=== PATIENT | female | born 1975 | race African-American/Black ===

== ENCOUNTER 2019-01-08 21:32 | Emergency (ER) | payer OTHER ==
[~2019-01-08] VITALS: Ht 160 cm; Wt 68.0 kg
[2019-01-08] MEDS ORDERED: AZELASTINE137 MCG/0. NASAL (21:55)
[2019-01-08] MEDS ORDERED: BUTRANS1 EAC1 TD (21:55)
[2019-01-08] MEDS ORDERED: CYMBALTA60 MG PO (21:56)
[2019-01-08] MEDS ORDERED: ZYRTEC10 M5 PO (21:56)
[2019-01-08] MEDS ORDERED: VALIUM5 MG PO (21:56)
[2019-01-08] MEDS ORDERED: EPIPEN0.3 MG/0.1 IM (21:57)
[2019-01-08] MEDS ORDERED: FLONASE 0.05%50 MCG NASAL (21:57)
[2019-01-08] MEDS ORDERED: NEURONTIN 300300 M1 PO (21:58)
[2019-01-08] MEDS ORDERED: LINZESS290 MCG PO (21:58)
[2019-01-08] MEDS ORDERED: FOLIC ACID1 MG PO (21:58)
[2019-01-08] MEDS ORDERED: SINGULAIR 10 MG10 M1 PO (21:59)
[2019-01-08] MEDS ORDERED: METHOTREXATE 22.5 MG PO (21:59)
[2019-01-08] MEDS ORDERED: STELARA45 MG/0.5 SUBQ (22:00)
[2019-01-08] MEDS ORDERED: PROAIR HFA8.5 GM INH (22:00)
[2019-01-08] MEDS ORDERED: TRAZODONE HCL50 MG PO (22:01)
[2019-01-08] MEDS ORDERED: ZANAFLEX4 MG PO (22:01)
[2019-01-08] MEDS ORDERED: TROKENDI XR200 MG PO (22:02)
[2019-01-08 23:22] LABS: HEMATOCRIT 34.5 % (37.0-47.0); MCH 27.2 pg (26.0-34.0); MCV 85.1 fL (80.0-100.0); RBC 4.05 mil/uL (4.20-5.00); RDW 18.1 % (10.5-14.5); WBC 10.4 thou/uL (4.0-11.0)
[2019-01-08 23:26] LABS: ANION GAP 11 mmol/L (7-16); BUN 22 mg/dL (7-18); CALCIUM 8.6 mg/dL (8.5-10.1); CHLORIDE 111 mmol/L (98-107); CO2 22 mmol/L (21-32); CREATININE 1.1 mg/dL (0.6-1.0); GLUCOSE 83 mg/dL (74-106); POTASSIUM 3.7 mmol/L (3.5-5.1); SODIUM 144 mmol/L (136-145)
[2019-01-08 23:35] LABS: TROPONIN-I <0.06 ng/mL (<0.06)
[2019-01-08 23:40] LABS: URINE BILIRUBIN NEGATIVE (Negative); URINE BLOOD 3+ (Negative); URINE CLARITY SL CLOUDY; URINE COLOR YELLOW; URINE GLUCOSE-RANDOM* NEGATIVE (Negative); URINE KETONES NEGATIVE (Negative); URINE LEUKOCYTES-REFLEX TRACE (Negative); URINE NITRITE-REFLEX NEGATIVE (Negative); URINE PROTEIN (DIPSTICK) TRACE (Negative); URINE SPECIFIC GRAVITY 1.025 (1.005-1.035); URINE UROBILINOGEN 0.2 E.U./dl (0.2-1.0)
[2019-01-08 23:49] LABS: SQUAMOUS 0-3 Few /LPF (0-3)
[2019-01-08 23:50] LABS: CASTS None Seen /LPF (None Seen); MUCUS >6 Heavy strn/LPF (None Seen); URINE RBC >20 Many /HPF (0-2); URINE WBC-REFLEX 6-15 Few /HPF (0-5)
[2019-01-08 23:51] LABS: CALCIUM OXALATE 4-10 Moderate /LPF (None Seen)
[2019-01-09] MEDS ORDERED: KEFLEX500 M1 PO (03:48)
[2019-01-09] MEDS ORDERED: DIFLUCAN150 MG PO (03:48)
[2019-01-09 04:05] VITALS: BP 123/76
== END 2019-01-09 04:14 | disposition home or self-care (01) ==
LOC: ER 21:32
PROVIDERS: Emergency Medicine
DX: N39.0 Urinary tract infection, site not specified (principal); G43.909 Migraine, unspecified, not intractable, without status migrainosus; G40.909 Epilepsy, unspecified, not intractable, without status epilepticus; M79.7 Fibromyalgia; G89.4 Chronic pain syndrome; J45.909 Unspecified asthma, uncomplicated; Z88.5 Allergy status to narcotic agent; Z88.6 Allergy status to analgesic agent; Z88.1 Allergy status to other antibiotic agents; Z79.899 Other long term (current) drug therapy

== ENCOUNTER 2020-12-17 06:55 | Observation (INO) | payer OTHER ==
[~2020-12-17] VITALS: Ht 160 cm; Wt 66.6 kg
--- NOTE | ~2020-12-17 | EEG ---
[facility] [place] [address] ELECTROENCEPHALOGRAM Name: ROSE LOZANO Room #: 464-P [facility] IN M.R.#: [id number] Admission: 12/17/20 Attend Phys: Titi Mcgarry Discharge: Date of : 73 Report #: [id number] THIS REPORT FOR: //name// DOC #: [id number] Manpreet Penaloza MD DATE OF SERVICE: 12/17/2020 FINDINGS: This patient is being evaluated for a seizure. EEG was done by placing the electrode by standard 10-20 system of electrode placement. Both referential and sequential montages were used for recording. Background activity in this patient's EEG is about 8-9 Hz. She goes to sleep that is associated with bilateral slowing and vertex sharp waves. Significant amount of artifact is present. Photic stimulation is unremarkable. IMPRESSION: This patient's EEG does not demonstrate any clear-cut epileptiform activity. Thank you very much for this referral. Manpreet Penaloza MD PK/ALL By: [id number] Manpreet Penaloza MD /nt
--- NOTE | ~2020-12-17 | HC ---
[facility] [place] [address] [place] [address] CONSULTATION Name: ROSE LOZANO Joycelyn Room #: 464-P ADM IN M.R.#: [id number] Admission: 12/17/20 Attend Phys: Titi Cobb Discharge: Date of : 73 Report #: [id number] THIS REPORT FOR: cc: FAM - No family physician/PCP FAM - No family physician/PCP Manpreet Penaloza MD ~ DOC #: [id number] Manpreet Penaloza MD DATE OF SERVICE: 12/17/2020 HISTORY OF PRESENT ILLNESS: This is a 45-year-old female patient who was evaluated by me for headache. This patient has a very complicated history. She said she has a longstanding history of migraine, history is somewhat unstructured but looks like migraine started many years ago, probably in her early 20s, but she does not even remember clearly. Since then, she has been seen by multiple neurologists, according to her. Presently, she sees Dr. Hudson in [place] for neurological care. Prior to that, she has seen neurologist and neurosurgeon in [place]. When I asked her why did she see the neurosurgeon, she said it was because of head injury, but he cleared her. She said she has migraine headaches now since Monday. She had severe migraine, but she cannot tell me when was the last one between October and November. She has been to the hospital for the migraine, but does not remember the last time she was in the hospital. 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 She says she does not have a grand mal seizure. She does not remember anything about those episodes. She may have some twitching of the face, but no generalized tonic-clonic activity has been noticed. She should be on a list of medication, she is on multiple medications. She claims none of them is from psychiatric purposes, but lot of them have potential psychiatric use. She is on diazepam p.r.n. She is on venlafaxine, she does not know why. She is on gabapentin. She is on lamotrigine. Lamotrigine, she is on a somewhat lower dose, but looks like 50 mg p.o. b.i.d. the best I can tell. When I asked her whether she has any anxiety and depression, she says no. After persistent inquiry, she modified that and she says well she has seen psychiatrists in the past, but has not done recently. I asked her when was the last time she saw the psychiatrist, she did not tell me that. As far as treatment of the migraine is concerned, she says she takes calcitonin antagonist every month. She has taken Topamax and I am not sure why she stopped that. She says she has a love-hate relationship with Botox shots and she was part of the study. I am not sure what exactly that mean, whether Botox shots help her or not. She also described has a history of fibromyalgia. Her pain is all over the head. It also even involve the neck. She says movement of the eye hurts. I tried to check the reflexes, she says it hurts a lot in the knee because of fibromyalgia. Even when I tap with the hand, she jerks out saying it hurts too much. All of it makes it very difficult to [facility] [address] [place] [address] CONSULTATION Name: ROSE LOZANO Room #: 464-P ADM IN M.R.#: [id number] Admission: 12/17/20 Attend Phys: Titi Cobb Discharge: Date of : 73 Report #: [id number] further evaluate this patient. She says SHE IS ALLERGIC TO TRAMADOL. She had multiple testing including MRIs in the past. Here in the Emergency Room, she had a CT scan of the head as well as CT angio before I saw her. She complains of pain while moving the eyes, does not have any ENT complaint. She does not have any respiratory difficulty or chest pain. She complained of pain all over the body. She denied any dermatological symptoms. She denies any psychiatric symptoms, but she does have a psychiatric history. This was a relevant 14-point review of systems. PAST MEDICAL HISTORY: Positive for migraine, but mostly headache and history is not very clear because it is somewhat difficult to fully elicit a history because I do not get a clear answer to some of my questions. FAMILY HISTORY: Unremarkable. SOCIAL HISTORY: She says she works. ALLERGIES: SHE IS ALLERGIC TO MULTIPLE THINGS. PHYSICAL EXAMINATION: Her examination was very difficult. She will not open her eyes. When she finally opened, I asked her to move her eyes in all direction. She says it hurts. When I tried to ask her to lift her arm, she does it very slowly, but when she is distracted, she is able to move reasonably well. Similar story is with the lower extremities. When I asked her if her toe is up or down, she persistently say it opposite to what it is. When I tried to check her reflexes, she jumps even if I tried to check with my hands. That makes it very difficult to evaluate her. There is no meningeal sign in this patient. Cardiac and respiratory examination is unremarkable. VITAL SIGNS: Blood pressure is 163/93, respirations 16, pulse is 77, temperature is 98.6. LABORATORY DATA: White count 11.2. She had a CT scan of the head and CT angio in the Emergency Room and that was unremarkable. Her sed rate is high, but the finding is not very typical for temporal arteritis, but as I understand, Rheumatology is going to address that question and we will defer to them. IMPRESSION: 1. I discussed with this patient that everything need to be readdressed in her case. The history of migraine as well as a history of partial complex seizures need to be readdressed. I told her that these things are typically done in a tertiary care hospital and I told her to go to a tertiary care hospital after she is dismissed. She also need pain management, but unfortunately no pain management or an displayer comes here. I will get her records from her prior neurologist. [address] [place] [address] CONSULTATION Name: ROSE LOZANO Room #: 464-P [facility] IN .R.#: [id number] Admission: 12/17/20 Attend Phys: Titi Cobb Discharge: Date of : 73 Report #: [id number] 2. We can consider spinal tap, but the chances of infection is not very high. I think the main management is probably going to be symptomatic. I offered her to give her Depakote or steroids, but she says those do not help. I am not sure what can be done in the circumstances, but we will review her old records and will defer the pain management to them and Dr. Field will follow up with you from tomorrow. Thank you very much for this referral. I will suggest considering a psychiatric consult in this patient if patient is agreeable for that. MD CARLO Cardozo/IRISH By: [id number] Manpreet Penaloza MD /nt
[~2020-12-17 06:55] MED LIST: AZELASTINE137 MCG/0. NASAL; BUTRANS1 EAC1 TD; CYMBALTA60 MG PO; DIFLUCAN150 MG PO; EPIPEN0.3 MG/0.1 IM; FLONASE 0.05%50 MCG NASAL; FOLIC ACID1 MG PO; KEFLEX500 M1 PO; LINZESS290 MCG PO; METHOTREXATE 22.5 MG PO; NEURONTIN 300300 M1 PO; PROAIR HFA8.5 GM INH; SINGULAIR 10 MG10 M1 PO; STELARA45 MG/0.5 SUBQ; TRAZODONE HCL50 MG PO; TROKENDI XR200 MG PO; VALIUM5 MG PO; ZANAFLEX4 MG PO; ZYRTEC10 M5 PO
[2020-12-17 07:06] VITALS: BP 119/81
[2020-12-17 07:31] LABS: ABSOLUTE NEUTROPHILS 8.1 thou/uL (1.4-8.2); BASOPHILS 0.5 % (0.0-2.0); EOSINOPHILS 0.1 % (0.0-3.0); HEMATOCRIT 35.3 % (37.0-47.0); LYMPHOCYTES 13.1 % (24.0-44.0); MCH 30.2 pg (26.0-34.0); MCHC 34.1 g/dL (28.0-37.0); MCV 88.6 fL (80.0-100.0); MONOCYTES 13.8 % (1.0-8.0); PLATELET COUNT 320 thou/uL (150-400); POLYS 72.5 % (36.0-66.0); RBC 3.98 mil/uL (4.20-5.00); RDW 16.9 % (10.5-14.5); WBC 11.2 thou/uL (4.0-11.0)
[2020-12-17 07:36] LABS: CALCIUM 8.5 mg/dL (8.5-10.1); CREATININE 1.1 mg/dL (0.6-1.0); POTASSIUM 3.6 mmol/L (3.5-5.1)
[2020-12-17 07:42] LABS: TOTAL BILIRUBIN 0.3 mg/dL (0.2-1.0); TOTAL PROTEIN 7.3 g/dL (6.4-8.2)
[2020-12-17 10:03] LABS: AMP/METHAMP Negative (Negative); BARBITURATES Negative (Negative); BENZODIAZEPINES Negative (Negative); COCAINE Negative (Negative); METHADONE Negative (Negative); OPIATES Negative (Negative); PCP Negative (Negative)
[2020-12-17 11:58] VITALS: BP 124/85
[2020-12-17 12:42] VITALS: BP 136/93
[2020-12-17 16:18] VITALS: BP 133/90
[2020-12-17] MEDS ORDERED: LAMOTRIGINE25 MG PO (17:17)
[2020-12-17] MEDS ORDERED: NALTREXONE HCL5 GM PO (17:18)
[2020-12-17] MEDS ORDERED: OLOPATADINE HC2.5 ML OPHTHALMIC (17:20)
[2020-12-17 20:16] VITALS: BP 130/84
[2020-12-18 07:48] VITALS: BP 137/90
[2020-12-18 15:38] VITALS: BP 136/88
[2020-12-18] MEDS ORDERED: PREDNISONE 20 M20 MG PO (16:30)
[2020-12-18 20:13] VITALS: BP 133/86
[2020-12-19 07:21] VITALS: BP 150/102
[2020-12-19 09:50] VITALS: BP 132/84
[2020-12-19 14:50] VITALS: BP 132/84
== END 2020-12-19 15:46 | disposition home or self-care (01) ==
LOC: ER 06:55 → 4W 12:35
PROVIDERS: Emergency Medicine; ADMIT Hospitalist; ATTEND Hospitalist
DX: G43.919 Migraine, unspecified, intractable, without status migrainosus (principal); G40.209 Localization-related (focal) (partial) symptomatic epilepsy and epileptic syndromes with complex partial seizures, not intractable, without status epilepticus; Z20.822 Contact with and (suspected) exposure to COVID-19; M79.7 Fibromyalgia; G89.29 Other chronic pain; J45.909 Unspecified asthma, uncomplicated; Z88.5 Allergy status to narcotic agent; Z88.6 Allergy status to analgesic agent; Z91.048 Other nonmedicinal substance allergy status; Z88.1 Allergy status to other antibiotic agents
CPT/HCPCS: 10040